=== PATIENT | male | born 1980 | race Caucasian/White ===

== ENCOUNTER 2020-12-16 13:54 | Emergency (ER) | payer OTHER, SELFPAY ==
--- NOTE | 2020-12-16 14:11 | ED.EYEPROB ---
HPI - Eye Problem General Chief complaint: Eye Problems Stated complaint: left eye painful Time Seen by Provider: 12/16/20 14:11 Source: patient and RN notes reviewed History of Present Illness HPI Narrative: Patient is a 40-year-old male who presents the urgent care with complaints of left eye irritation, watering and scratchiness. Patient states that it is sensitive to light. Patient states it has gotten worse since yesterday when it started. 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 Patient has continued to rub on the eye consistently. Denies of actual vision change but states that the constant drainage causes some blurry vision . Denies of any known trauma or injury to the eye. No other acute complaints. No acute distress noted. Patient aware of the plan of care. Some parts of this dictation were generated by voice recognition software and may contain typographical and/or grammatical inaccuracies. Related Data Allergies Allergy/AdvReac Type Severity Reaction Status Date / Time No Known Allergies Allergy Verified 12/16/20 14:10 Review of Systems Review of Systems: Narrative: CONSTITUTIONAL: Denies fever, chills, or sweats. EYES: Reports of redness, drainage, scratchiness,light sensitivity to the left eye ENT: Denies rhinorrhea, congestion, sore throat, or otalgia. CARDIOVASCULAR: Denies chest pain, palpitations, or edema. RESPIRATORY: Denies cough or dyspnea. GASTROINTESTINAL: Denies abdominal pain, nausea, vomiting, or diarrhea. GENITOURINARY: Denies dysuria or hematuria. SKIN: Denies rash or itching. MUSCULOSKELETAL: Denies back pain, joint pain, or myalgia. NEUROLOGIC: Denies headache, numbness, or weakness. All other systems reviewed are negative, except as documented in HPI. [facility] Family History Family History (Updated 05/23/14 @ 07:13 by DOCTOR UNKNOWN) Father Hypertension Grandparent Family history of coronary artery disease Social History Social History Alcohol intake: current Comments At the time of my signature, I reviewed and agree with the nursing past medical, surgical, social, and family history. There is no relevant family history pertinent to the patient complaint. Exam Narrative: Exam Narrative: GENERAL: This is a well-nourished, well-developed patient, in no apparent distress. HEAD: normocephalic, atraumatic. EYES: PERRL. Right sclera clear/white. Vision is grossly intact. Mild injected left conjunctiva with moderate injected sclera without any obvious foreign body or trauma. EARS: External ears normal NOSE: External nose normal with no obvious nasal discharge, nares without redness, no rhinorrhea. THROAT: Mucous membranes moist NECK: Neck supple SKIN: warm, intact with no suspicious lesions or rash, good texture and turgor. NEURO: awake, alert, and oriented to person, place and time. There were no obvious focal neurologic abnormalities. EXTREMITIES: No clubbing, cyanosis, or edema. Course Vital Signs Vital signs: Vital Signs Temperature 98.2 F 12/16/20 14:15 Pulse Rate 109 H 12/16/20 14:15 Respiratory Rate 16 12/16/20 14:15 Blood Pressure 140/94 H 12/16/20 14:15 Pulse Oximetry 98 12/16/20 14:15 Temperature 98.2 F 12/16/20 14:15 Pulse Rate 109 H 12/16/20 14:15 Respiratory Rate 16 12/16/20 14:15 Blood Pressure 140/94 H 12/16/20 14:15 Pulse Oximetry 98 12/16/20 14:15 Reviewed-patient is informed that they may have pre-hypertension or hypertension based on a blood pressure reading in the department. I recommend the patient call the primary care provider listed on their discharge instructions or a physician of their choice this week to arrange follow-up for further evaluation of possible pre-hypertension or hypertension. Procedures FB Removal Eye Foreign Body #1: Location: eye (L) Topical anesthetic used: tetracaine Evidence of corneal penetration: No Technique: eye wash bottle Pr
[2020-12-16 14:15] VITALS: BP 140/94; PULSE 109; RESP 16; TEMP 36.8; O2SAT 98
== END 2020-12-16 14:42 | disposition home or self-care (01) ==
PROVIDERS: Emergency Provider Nurse Practitioner Family
DX: S00.202A Unspecified superficial injury of left eyelid and periocular area, initial encounter (principal); X58.XXXA Exposure to other specified factors, initial encounter
CPT/HCPCS: 99213; A9270; G0463

== ENCOUNTER 2021-07-03 19:35 | Emergency (ER) | payer OTHER, SELFPAY ==
--- NOTE | ~2021-07-03 | XR_ITS ---
EXAMINATION: [id number] DATE: 07/03/2021 21:53 INDICATION: Right chest pain. Injury. TECHNIQUE: A frontal view of the chest and 2 views on 3 radiographs of the right ribs were obtained. COMPARISON: None. FINDINGS: There is mild scarring at the lung apices. No pleural effusion or pneumothorax. The heart s ize is normal. IMPRESSION: 1. No rib fracture. 2. Mild scarring at the lung apices. Reviewed, dictated and finalized at location A.
--- NOTE | ~2021-07-03 | XR_ITS ---
EXAMINATION: XR hip RT min 2V DATE: 07/03/2021 21:53 INDICATION: Right hip pain. Injury. TECHNIQUE: 3 views of right hip were obtained. COMPARISON: CT abdomen and pelvis 04/25/2012 FINDINGS: Bone alignment is normal. No fracture. There is severe lower lumbar spondylosis. There is a benign bone island in right ilium. There is mild right hip osteoarthritis. IMPRESSION: 1. Mild right hip osteoarthritis. Reviewed, dictated and finalized at location A.
[2021-07-03 19:41] VITALS: BP 137/86; PULSE 96; RESP 16; TEMP 37.1; O2SAT 100
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
== END 2021-07-03 20:32 | disposition home or self-care (01) ==
PROVIDERS: Emergency Provider Nurse Practitioner
DX: R07.81 Pleurodynia (principal); M25.551 Pain in right hip; F17.200 Nicotine dependence, unspecified, uncomplicated
CPT/HCPCS: 71101; 73502; 99214; G0463

== ENCOUNTER 2023-01-30 20:15 | Emergency (ER) | payer OTHER, SELFPAY ==
--- NOTE | ~2023-01-30 | XR_ITS ---
EXAMINATION: XR ankle RT min 3V DATE: 01/30/2023 20:49 INDICATION: Right ankle dog bite. TECHNIQUE: 4 views of right ankle were obtained. COMPARISON: None. FINDINGS: Bone alignment is normal. No fracture. Joint spaces are normal. IMPRESSION: 1. No fracture or radiopaque foreign body. Reviewed, dictated and finalized at location A.
[2023-01-30 20:30] VITALS: BP 134/95; PULSE 99; RESP 16; TEMP 36.4; O2SAT 100
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
[2023-01-30] MEDS: ONDANSETRON INJ 4 MG/2 ML VIAL IV PUSH (22:49)
[2023-01-30] MEDS: MORPHINE SULFATE (*CRX) 4 MG/ML INJ IV PUSH (22:49)
[2023-01-30] MEDS: AMPICILLIN SULB 3 GM/NS 100 ML 3 GM/100 ML VIAL IVPB (23:10)
[2023-01-30] MEDS: TETANUS,DIPHTHERIA,AC PERTUSSIS ADULT (0.5 ML) BOOSTRIX IM (23:12)
[2023-01-31 00:07] VITALS: BP 128/64; PULSE 64; RESP 17; O2SAT 98
[2023-01-31] MEDS: LIDOCAINE HCL 1% LOCAL INJ 10 ML VIAL (00:07)
== END 2023-01-31 00:08 | disposition home or self-care (01) ==
PROVIDERS: Emergency Provider Physician Assistant
DX: S81.851A Open bite, right lower leg, initial encounter (principal); Z23 Encounter for immunization; W54.0XXA Bitten by dog, initial encounter
CPT/HCPCS: 12001; 73610; 90471; 90715; 96365; 96375; 99284; J0295; J2270; J2405

== ENCOUNTER 2023-08-10 19:19 | Emergency (ER) | payer OTHER, SELFPAY ==
[2023-08-10 19:26] VITALS: BP 131/93; PULSE 106; RESP 18; TEMP 37.4; O2SAT 100
[2023-08-10 19:29] VITALS: BP 131/93; PULSE 106; RESP 18; TEMP 37.4; O2SAT 100
--- NOTE | 2023-08-10 19:59 | ED.GENADULT ---
HPI - General Adult General Chief complaint: Skin/Abscess/Foreign Body Stated complaint: Infected wound Time Seen by Provider: 08/10/23 19:40 Source: patient and RN notes reviewed Mode of arrival: ambulatory Limitations: no limitations History of Present Illness HPI narrative: Patient presents today complaining of an infected laceration. Patient sustained a laceration to his left thigh approximately 12 days ago and sutures were placed at another urgent care. States that he was supposed to have his sutures removed after 10 days, but he is coming here today to have them removed. Also states his laceration is infected and started draining purulent discharge today. Related Data Allergies Allergy/AdvReac Type Severity Reaction Status Date / Time No Known Allergies Allergy Verified 08/10/23 19:28 Review of Systems Review of Systems: CONSTITUTIONAL: Denies body aches, fever, chills, or sweats. EYES: Denies visual changes, redness, or discharge. ENT: Denies rhinorrhea, congestion, sore throat, or otalgia. CARDIOVASCULAR: Denies chest pain, palpitations, or edema. RESPIRATORY: Denies cough or dyspnea. GASTROINTESTINAL: Denies abdominal pain, nausea, vomiting, or diarrhea. GENITOURINARY: Denies dysuria or hematuria. SKIN: + infected wound MUSCULOSKELETAL: Denies back pain, joint pain, or myalgia. NEUROLOGIC: Denies headache, numbness, tingling, or weakness. PSYCH: Denies depression or anxiety. [facility] Past Medical History Medical History No pertinent past medical history Surgical History Surgical History No pertinent past surgical history Family History Family History Father Hypertension Grandparent Family history of coronary artery disease Social History Social History Smoking status: Current every day smoker Second hand tobacco smoke exposure: No Alcohol intake: current Substance use: unknown Gender identity (if verbalized by the patient): Male Sexual Orientation (if Verbalized by the Patient): Straight or Heterosexual Comments At time of signature, I have reviewed and agree with nursing past medical, surgical, social and family history unless otherwise noted. Please see nursing chart for further information. There is no relevant family history pertinent to the presenting complaint Exam Narrative: GENERAL: Well-appearing, well-nourished, and in no acute distress. HEAD: Normocephalic, atraumatic. EYES: EOMI. No redness or drainage. Conjunctivae normal. ENT: Mucous membranes pink and moist. NECK: Normal AROM. CHEST: No respiratory distress. EXTREMITIES: 5 cm infected laceration surrounded by 7 cm x 2 cm erythema and induration. The laceration is draining moderate amount of bloody purulent discharge. The area is tender to palpation. SKIN: Warm, dry, no rash. Capillary refill normal. Normal skin turgor. NEURO: No focal deficits. Alert and oriented x3. Gait steady. PSYCH: Normal affect. No signs of depression or anxiety. Course Course Level of Care: Express Care Visit Vital Signs Vital signs: Vital Signs Temperature 99.3 F 08/10/23 19:26 Pulse Rate 106 H 08/10/23 19:26 Respiratory Rate 18 08/10/23 19:26 Blood Pressure 131/93 H 08/10/23 19:26 Pulse Oximetry 100 08/10/23 19:26 Oxygen Delivery Room Air 08/10/23 19:26 Temperature 99.3 F 08/10/23 19:29 Pulse Rate 106 H 08/10/23 19:29 Respiratory Rate 18 08/10/23 19:29 Blood Pressure 131/93 H 08/10/23 19:29 Pulse Oximetry 100 08/10/23 19:29 Oxygen Delivery Room Air 08/10/23 19:29 Reviewed Medical Decision Making [facility] Narrative Medical decision making narrative: Patient's sutures were removed and wound was cleaned and debrided and redressed. Presc
== END 2023-08-10 20:08 | disposition home or self-care (01) ==
PROVIDERS: Emergency Provider Nurse Practitioner
DX: S71.112D Laceration without foreign body, left thigh, subsequent encounter (principal); L08.9 Local infection of the skin and subcutaneous tissue, unspecified; F17.200 Nicotine dependence, unspecified, uncomplicated; W45.8XXD Other foreign body or object entering through skin, subsequent encounter
CPT/HCPCS: 99213; G0463

== ENCOUNTER 2024-01-10 11:03 | Emergency (ER) | payer OTHER, SELFPAY ==
[2024-01-10 11:10] VITALS: BP 119/79; PULSE 78; RESP 16; TEMP 36.4; O2SAT 100
--- NOTE | 2024-01-10 11:32 | ED.EYEPROB ---
HPI - Eye Problem General Chief complaint: Eye Problems Stated complaint: right eye red,painful,swollen Time Seen by Provider: 01/10/24 11:33 Source: patient Mode of arrival: ambulatory Limitations: no limitations History of Present Illness HPI Narrative: 43-year-old male presented for complaint of right eye pain after injury yesterday. He states while cutting tree limbs, one limb bounced up and struck him in the face/ right eye. Feels like something is in the eye, unable to tolerate opening the eye due to light sensitivity and tearing. Rinsed the eye with water yesterday without relief. Does not wear contact lenses. chief complaint: eye pain Related Data Allergies Allergy/AdvReac Type Severity Reaction Status Date / Time No Known Allergies Allergy Verified 01/10/24 11:22 Review of Systems Review of Systems: CONSTITUTIONAL: Denies body aches, fever, chills EYES:Endorses pain to right eye; FB sensation, photophobia, visual changes ENT: Denies rhinorrhea, congestion, sore throat, or otalgia. CARDIOVASCULAR: Denies chest pain, palpitations RESPIRATORY: Denies cough or dyspnea. GASTROINTESTINAL: Denies abdominal pain, nausea, vomiting, or diarrhea. SKIN: Denies rash, itching, or wounds. MUSCULOSKELETAL: Denies back pain, joint pain, or myalgia. NEUROLOGIC: Denies headache, numbness, tingling, or weakness. All systems reviewed & are unremarkable except as noted in HPI and below PMFSH Past Medical History Medical History No pertinent past medical history Surgical History Surgical History No pertinent past surgical history Family History Family History Father Hypertension Grandparent Family history of coronary artery disease Social History Social History Smoking status: Current every day smoker Second hand tobacco smoke exposure: No Alcohol intake: current Substance use: unknown Gender identity (if verbalized by the patient): Male Sexual Orientation (if Verbalized by the Patient): Straight or Heterosexual Comments At time of signature, I have reviewed and agree with nursing past medical, surgical, social and family history unless otherwise noted. Please see nursing chart for further information. There is no relevant family history pertinent to the presenting complaint Exam Narrative: GENERAL: Well-appearing HEAD: Normocephalic, atraumatic. EYES: Right upper and lower eyelid with abrasion/bruising, mild upper lid swelling. Pt is unable to tolerate opening the eye. Frequent tearing. No conjunctival injection. EOMI. Lid eversion shows no FB. Corneal abrasion noted over pupil and at 6o'clock position, no apparent FB identified with abrasion. ENT: Mucous membranes pink and moist. No rhinorrhea. CHEST: Clear to auscultation. HEART: Regular rate and rhythm. SKIN: Warm, dry, no rash. Normal skin turgor. NEURO: No focal deficits. Alert and oriented x3 Course Course Emergency Course: Patient is aware of diagnosis, understands and agrees to treatment plan. Anticipatory guidance given. Patient agrees to follow-up as directed and is aware of reasons to seek care at the emergency department. Portions of this record may have been created with voice recognition software Level of Care: Express Care Visit Vital Signs Vital signs: Vital Signs Temperature 97.6 F 01/10/24 11:10 Pulse Rate 78 01/10/24 11:10 Respiratory Rate 16 01/10/24 11:10 Blood Pressure 119/79 01/10/24 11:10 Pulse Oximetry 100 01/10/24 11:10 Oxygen Delivery Room Air 01/10/24 11:10 Temperature 97.6 F 01/10/24 11:10 Pulse Rate 78 01/10/24 11:10 Respiratory Rate 16 01/10/24 11:10 Blood Pressure 119/79 01/10/24 11:10 Pulse Oximetry 100 01/10/24 11:10 Oxygen Del
[2024-01-10] MEDS: TETRACAINE HCL 0.5% OPHTH SOLN 4 ML BTL AFFCTD EYE (11:38)
[2024-01-10] MEDS: DACRIOSE EYE IRRIGATION 118 ML BOTTLE AFFCTD EYE (11:39)
[2024-01-10] MEDS: FLUORESCEIN SOD 1 MG/STRIP AFFCTD EYE (11:40)
== END 2024-01-10 11:55 | disposition home or self-care (01) ==
PROVIDERS: Emergency Provider Nurse Practitioner Family
DX: S05.01XA Injury of conjunctiva and corneal abrasion without foreign body, right eye, initial encounter (principal); W22.8XXA Striking against or struck by other objects, initial encounter; F17.200 Nicotine dependence, unspecified, uncomplicated
CPT/HCPCS: 99213; A9270; G0463

== ENCOUNTER 2024-06-16 14:37 | Emergency (ER) | payer OTHER, SELFPAY ==
[2024-06-16 14:55] VITALS: BP 141/92; PULSE 79; RESP 16; TEMP 36.6; O2SAT 98
--- NOTE | 2024-06-16 15:25 | ED.GENADULT ---
HPI - General Adult General Chief complaint: Dental/Oral Stated complaint: Dental Pain Time Seen by Provider: 06/16/24 15:25 Source: patient, RN notes reviewed and old records reviewed Mode of arrival: ambulatory Limitations: no limitations History of Present Illness HPI narrative: 44-year-old male presents to the [facility] with complaints of dental pain. Pain to the left lower posterior molar, broken and decayed. No dentist. Poor dentition Related Data Allergies Allergy/AdvReac Type Severity Reaction Status Date / Time No Known Allergies Allergy Verified 06/16/24 14:50 Review of Systems Review of Systems: All systems reviewed & are unremarkable except as noted in HPI and below Constitutional: Constitutional: Reports no additional constitutional complaints Eyes: Eyes: Reports no additional eye complaints ENT: Reports as per HPI Cardiovascular: Cardiovascular: Reports no additional cardiovascular complaints, Denies chest pain and Denies dyspnea Respiratory: Respiratory: Reports no additional respiratory complaints, Denies chest congestion, Denies cough and Denies dyspnea Gastrointestinal: Gastrointestinal: Reports no additional gastrointestinal complaints, Denies abdominal pain, Denies nausea and Denies vomiting Musculoskeletal: Musculoskeletal: Reports no additional musculoskeletal complaints Integumentary/Breasts: Skin/Breast: Reports system reviewed and no additional complaints, except as docu Neurologic: Reports system reviewed and no additional complaints, except as documented Psychiatric: Psychiatric: Reports no additional psychiatric complaints Allergic/Immunologic: Allergic/Immunologic: Reports no additional allergic/immunologic complaints [facility] Past Medical History Medical History No pertinent past medical history Surgical History Surgical History No pertinent past surgical history Family History Family History Father Hypertension Grandparent Family history of coronary artery disease Social History Social History Smoking status: Current every day smoker Second hand tobacco smoke exposure: No Alcohol intake: current Substance use: unknown Gender identity (if verbalized by the patient): Male Sexual Orientation (if Verbalized by the Patient): Straight or Heterosexual Comments At the time of my signature, I reviewed and agree with the nursing past medical, surgical, social, and family history. There is no relevant family history pertinent to the patient complaint. Exam Const: General: cooperative, healthy appearing, comfortable, no acute distress, well developed, alert and well nourished Nutritional Appearance: well nourished Orientation/consciousness: patient oriented x3 Limitations: no limitations HENMT: Head: normal to inspection Ears: hearing grossly normal bilaterally and external ears normal Face/Nose/Sinus: Normal external nose present, Normal nares present, Normal nasal mucous membranes and turbinates present, normal facial exam and face symmetric Face and sinus: normal facial exam and face symmetric Mouth: Yes Normal oral and palatal mucosa present, Yes lip normal and Yes tongue normal Teeth and gingiva: gingiva abnormal (Left lower posterior swelling) edematous and poor dentition Eyes: General: appearance normal, both eyes and all related structures Alignment and Position: alignment normal Periorbital: periorbital findings normal Neck: Neck: normal visual inspection, full ROM, no lymphadenopathy and no meningeal signs Chest: Chest palpation & inspection: normal inspection of the chest Resp: Effort & Inspection: normal respiratory effort and able to speak in complete sentences Cardio: Rate: regular rate Skin: General skin exam: normal color and
== END 2024-06-16 15:56 | disposition home or self-care (01) ==
PROVIDERS: Emergency Provider Nurse Practitioner
DX: K02.9 Dental caries, unspecified (principal); K04.7 Periapical abscess without sinus; F17.200 Nicotine dependence, unspecified, uncomplicated
CPT/HCPCS: 99213; G0463